=== PATIENT | female | born 1980 | race Caucasian/White ===

== ENCOUNTER 2020-04-26 12:20 | Emergency (ER) | payer OTHER, SELFPAY ==
[2020-04-26 12:28] VITALS: BP 165/102; PULSE 81; RESP 20; TEMP 36.7; O2SAT 100
--- NOTE | 2020-04-26 12:36 | ED.GENADULT ---
HPI - General Adult General Chief complaint: Wound/Laceration Stated complaint: laceration Time Seen by Provider: 04/26/20 12:36 Source: patient Mode of arrival: ambulatory Limitations: no limitations History of Present Illness HPI narrative: 40-year-old female patient presents to [facility] with complaints of a laceration to left thumb. Patient states that she was cutting onions today and accidentally cut her thumb with a knife. Patient unknown of when her last tetanus shot was. Related Data Home Medications Medication Instructions Recorded Confirmed loratadine [Claritin] 10 mg PO DAILY 04/14/19 04/29/19 Allergies Allergy/AdvReac Type Severity Reaction Status Date / Time No Known Allergies Allergy Verified 01/17/20 09:40 Review of Systems Review of Systems: Narrative: CONSTITUTIONAL: Denies fever, chills, or sweats. EYES: Denies visual changes, redness, or discharge. ENT: Denies rhinorrhea, congestion, sore throat, or otalgia. CARDIOVASCULAR: Denies chest pain, palpitations, or edema. RESPIRATORY: Denies cough or dyspnea. GASTROINTESTINAL: Denies abdominal pain, nausea, vomiting, or diarrhea. GENITOURINARY: Denies dysuria or hematuria. SKIN: Denies rash or itching. Positive laceration to left thumb MUSCULOSKELETAL: Denies back pain, joint pain, or myalgia. NEUROLOGIC: Denies headache, numbness, or weakness. PSYCHIATRIC: Denies anxiety or depression. [facility] Past Medical History Medical History (Updated 04/26/20 @ 13:04 by FRANCISCO Sweet) Cancer of skin GERD (gastroesophageal reflux disease) Vaginal delivery Surgical History Surgical History History of appendectomy Family History Family History Mother Family history of malignant neoplasm of cervix Grandparent Family history of lupus erythematosus Other Diabetes mellitus Social History Social History Smoking status: Former smoker Second hand tobacco smoke exposure: No Smoking end date: 05/04/04 Alcohol intake: current Gender identity (if verbalized by the patient): Female Comments At the time of my signature I agree with nursing past medical history, surgical, social, and family history. There is no relevant family history pertinent to the presenting complaint. Exam Narrative: Exam Narrative: GENERAL: Well-appearing, well-nourished, and in no acute distress. HEAD: Normocephalic, atraumatic. EYES: PERRLA and EOMI. ENT: Nares clear, no rhinorrhea or epistaxis. Mucous membranes moist. NECK: Supple. No lymphadenopathy CHEST: Clear to auscultation. No respiratory distress. HEART: Regular rate and rhythm. No murmur heard. Normal peripheral pulses. ABDOMEN: Soft, nontender, nondistended, normal active bowel sounds. EXTREMITIES: Normal range of motion. No edema. SKIN: Warm, dry, no rash. Patient is approximately 2 cm crescent type of laceration to the distal portion of the left thumb does involve a small area of the corner of the nail. There is some bleeding currently noted. Patient does have excellent range of motion and the laceration does not involve the joint area. Patient does have good cap refill and good sensation to the distal portion of the left thumb NEURO: No focal deficits. Alert and oriented x3. Course Vital Signs Vital signs: Vital Signs Temperature 36.7 C 04/26/20 12:28 Pulse Rate 81 04/26/20 12:28 Respiratory Rate 20 04/26/20 12:28 Blood Pressure 165/102 H 04/26/20 12:28 Pulse Oximetry 100 04/26/20 12:28 Temperature 36.7 C 04/26/20 12:28 Pulse Rate 81 04/26/20 12:28 Respiratory Rate 20 04/26/20 12:28 Blood Pressure 165/102 H 04/26/20 12:28 Pulse Oximetry 100 04/26/20 12:28 Vital signs reviewed The patient has been informed that they may have pre-hypertension or Hypertension based on a BP reading in the dep
[2020-04-26] MEDS: TETANUS,DIPHTHERIA,AC PERTUSSIS ADULT (0.5 ML) BOOSTRIX IM (12:56)
== END 2020-04-26 13:12 | disposition home or self-care (01) ==
PROVIDERS: Emergency Provider Nurse Practitioner Family; PCP Internal Medicine
DX: S61.012A Laceration without foreign body of left thumb without damage to nail, initial encounter (principal); W26.0XXA Contact with knife, initial encounter; Z23 Encounter for immunization; Z87.891 Personal history of nicotine dependence; K21.9 Gastro-esophageal reflux disease without esophagitis; Z85.828 Personal history of other malignant neoplasm of skin
CPT/HCPCS: 12001; 90471; 90715; 99212; G0463